=== PATIENT | female | born 1955 | race African-American/Black ===

== ENCOUNTER 2016-08-01 11:39 | Emergency (ER) | payer OTHER ==
[~2016-08-01 11:39] MED LIST: AMLODIPINE BENAZEPRI PO; AMLODIPINE-BENA1 CA3 PO; ASPIRIN81 M2 PO; CHOLESTEROL MED; CITALOPRAM HBR10 MG PO; GLUCOPHAGE XR500 MG PO; HCTZ PO; LISINOPRIL PO; METFORMIN PO; PATIENT'S PHARMACY; SIMVASTATIN20 MG PO; VICODIN 5/500 T1 TAB PO; VITAMIN D 4001 UDTAB PO; VITAMIN D PO
== END 2016-08-01 12:18 | disposition home or self-care (01) ==
LOC: SED 11:39
DX: J18.9 Pneumonia, unspecified organism (principal); J98.01 Acute bronchospasm; Z90.710 Acquired absence of both cervix and uterus; Z98.51 Tubal ligation status
CPT/HCPCS: 94640; 99283

== ENCOUNTER → 2016-12-17 | Outpatient (CLI) | payer OTHER ==
--- NOTE | ~2016-12-17 | MY29 ---
[facility] A Service of [facility] RADIOLOGY TEXT RESULTS PATIENT: SY GILES LOCATION: [facility] : 57 UNIT #: [id number] AGE: [address]: Sissy Hein MD SEX: F ORDER DR: [id number] [facility] [address] [place], [place] [address] [id number] O MR#: [id number] Acc #: [id number] NAME: SY GILES : 1955 SEX: F STUDY DATE/TIME: 12/17/2016 9:59 UNIT: [facility] ROOM: STUDY DESCRIPTION: MY MARICAREMN SCREENING W/ CAD BILAT Attending Physician: Sissy Hein M.D. Ordering Physician: Sisys Hein M.D. Primary Care Physician: Sissy Hein M.D. MEDICAL IMAGING REPORT This report is preliminary unless electronic signature is present EXAM Digital screening mammogram, 12/17/2016, [facility]. HISTORY 61-year-old woman positive family history. Annual screen. COMPARISON Mammograms date to 08/09/2002 with most recent screening comparison 12/09/2014. FINDINGS Digital imaging of each breast was completed utilizing a two-view examination of each breast in craniocaudal and mediolateral-oblique projections. Review and interpretation of digital mammograms include a second review in conjunction with FDA-approved CAD device. There is a normal parenchymal presentation bilaterally consistent with the patient's age. There are no breast masses imaged and no parenchymal asymmetry is visualized. There are no suspicious microcalcifications and I see no focal architectural disturbance. IMPRESSION Negative screening digital mammogram. One-year followup recommended. Patients over the age of 40 are entered into a reminder system with target due date for the next mammogram. A result letter will also be sent to the patient. BIRADS: 1 Negative ADDENDUM Breast parenchyma is fatty replaced. [facility] A Service of [facility] RADIOLOGY TEXT RESULTS PATIENT: SY GILES LOCATION: [facility] : 57 UNIT #: [id number] AGE: [address]: Sissy Hein MD SEX: F ORDER DR: Dictated by... Fernando Stephens M.D. THIS IS AN ELECTRONICALLY VERIFIED REPORT Fernando Stephens M.D. at 12/17/2016 2:39 PM ANGLE/nayely TD: 12/17/2016 12:46 JOB #: [id number] MEDICAL IMAGING REPORT Page 1 of 1 COPY
== END | disposition home or self-care (01) ==
LOC: CWCC 09:42
DX: Z12.31 Encounter for screening mammogram for malignant neoplasm of breast (principal); Z80.3 Family history of malignant neoplasm of breast
CPT/HCPCS: G0202